=== PATIENT | female | born 1960 | race Hispanic/Latino ===

== ENCOUNTER → 2019-04-23 | Outpatient (CLI) | payer OTHER | END | disposition home or self-care (01) | LOC: SHCH 14:01 | PROVIDERS: ATTEND Internal Medicine Cardiovascular Disease | DX: I10 Essential (primary) hypertension (principal) | CPT/HCPCS: 93306 ==

== ENCOUNTER 2019-06-22 05:44 | Day surgery (SDC) | payer OTHER ==
[2019-06-20 09:12] VITALS: BP 154/93
[2019-06-20 09:15] LABS: BASOPHILS % (AUTO) 0.4 % (0.0-5.0); EOSINOPHILS % (AUTO) 2.7 % (0.0-8.0); HEMATOCRIT 33.7 % (36-48); LYMPHOCYTES % (AUTO) 23.8 % (21.0-51.0); MEAN CORPUSCULAR HEMOGLOBIN 23.2 pg (27.0-33.0); MEAN CORPUSCULAR VOLUME 77.5 fL (79-99); MONOCYTES % (AUTO) 5.9 % (3.0-13.0); PLATELET COUNT (AUTO) 284 K/uL (130-400); RED BLOOD CELL COUNT(AUTO) 4.35 MIL/uL (4.00-5.50); RED CELL DISTRIBUTION WIDTH 16.1 % (11.0-15.5); WHITE BLOOD COUNT (AUTO) 5.5 K/uL (4.8-10.8)
[2019-06-20 09:16] LABS: APPEARANCE,URINE CLOUDY (CLEAR); BILIRUBIN,URINE NEGATIVE (NEGATIVE); COLOR,URINE YELLOW (YELLOW); GLUCOSE, URINE (UA) NEGATIVE (NEGATIVE); KETONES,URINE NEGATIVE (NEGATIVE); LEUKOCYTE ESTERASE ,URINE SMALL (NEGATIVE); NITRATE,URINE NEGATIVE (NEGATIVE); OCCULT BLOOD,URINE NEGATIVE (NEGATIVE); PH,URINE 7.5 (5.0-8.0); PROTEIN,URINE NEGATIVE (NEGATIVE); UROBILINOGEN,URINE 0.2 mg/dL (0.2-1.0)
[2019-06-20 09:20] LABS: CREATININE 0.8 mg/dL (0.5-1.5); POTASSIUM 3.9 mmol/L (3.5-5.1)
[2019-06-20 09:24] LABS: INR 0.95 (0.85-1.15); PARTIAL THROMBOPLASTIN TIME 27.1 SEC (26.3-35.5)
[2019-06-20 09:29] LABS: AMORPHOUS SEDIMENT,UR Many /LPF (None Seen); BACTERIA,URINE Rare /HPF (None Seen); RBC,URINE 0-1 /HPF (0-1); SQUAMOUS EPITHELIAL CELL,UR Rare /HPF (0-2); WBC,URINE 0-1 /HPF (0-1)
--- NOTE | 2019-06-21 20:00 | NUR ---
REPORTED ABNORMAL LABS TO RAFFAELE WARREN FOR DR. TODD, NO NEW ORDERS OK TO PROCEED.
[~2019-06-22] VITALS: Ht 154.9 cm; Wt 73.9 kg
[2019-06-22] VITALS (12 sets, daily range): BP systolic 114–147; BP diastolic 73–94
[~2019-06-22 05:44] MED LIST: ASPI-555 PO; ATOR20TA65 PO; DILT240C46 PO; FLUT16H NASAL; FOLI1TAB85 PO; NITR0.4T50 SL; SODIUM CHLORIDE 0.9% 500ML 500 ML IV SCH; TOPI50TA24 PO; VITAMIN D3 PO
[2019-06-22] MEDS ORDERED: SODIUM CHLORIDE 0.9% 1000ML 1,000 ML IV ONE (06:22)
[2019-06-22] MEDS ORDERED: IOHEXOL-350 50ML VIAL IV ONE (08:49)
[2019-06-22] MEDS ORDERED: LIDOCAINE HCL 2% 20ML ONE (08:49)
[2019-06-22] MEDS ORDERED: HEPARIN SODIUM 1000UNIT/ML 10ML VIAL ONE (08:49)
[2019-06-22] MEDS ORDERED: IOHEXOL 350 MG/ML 100ML INFUS..BTL IV ONE (08:49)
[2019-06-22] MEDS ORDERED: ACETAMINOPHEN 325 MG TAB ONE (14:23)
[2019-06-22] MEDS ORDERED: ACETAMINOPHEN 325 MG TAB PO ONE (15:40)
[2019-06-22] MEDS ORDERED: ONDANSETRON HCL 4 MG/2 ML VIAL ONE (16:40)
== END 2019-06-22 18:50 | disposition home or self-care (01) ==
LOC: DAH 05:44
PROVIDERS: ATTEND Internal Medicine Cardiovascular Disease
DX: R94.39 Abnormal result of other cardiovascular function study (principal); R07.9 Chest pain, unspecified; Z88.1 Allergy status to other antibiotic agents; Z88.2 Allergy status to sulfonamides; Z88.8 Allergy status to other drugs, medicaments and biological substances; Z79.899 Other long term (current) drug therapy; Z79.82 Long term (current) use of aspirin; Z82.49 Family history of ischemic heart disease and other diseases of the circulatory system
CPT/HCPCS: 36415; 71045; 80048; 81001; 85025; 85610; 85730; 93005; 93458; A4606; C1894; J1644; J2405; J3490; J7030; Q9967

== ENCOUNTER → 2021-04-11 | Outpatient (CLI) | payer OTHER ==
[~2021-04-11] MED LIST changes: -ASPI-555 PO; +ASPI-556 PO; -NITR0.4T50 SL; -SODIUM CHLORIDE 0.9% 500ML 500 ML IV SCH
== END | disposition home or self-care (01) ==
LOC: SHCH 07:31
PROVIDERS: ATTEND Internal Medicine Cardiovascular Disease
DX: I87.2 Venous insufficiency (chronic) (peripheral) (principal); R59.0 Localized enlarged lymph nodes
CPT/HCPCS: 93970

== ENCOUNTER → 2024-06-01 | Outpatient (CLI) | payer OTHER, MEDICARE ==
[~2024-06-01] MED LIST changes: +TOPI-97 PO; -TOPI50TA24 PO
[2024-06-01 10:18] LABS: INR <= 0.93 (0.85-1.15); PROTHROMBIN TIME 10.5 SEC (9.6-11.6)
[2024-06-01 10:20] LABS: PARTIAL THROMBOPLASTIN TIME 29.1 SEC (26.3-35.5)
== END | disposition home or self-care (01) ==
LOC: LAB 09:20
PROVIDERS: ATTEND Internal Medicine
DX: E04.2 Nontoxic multinodular goiter (principal)
CPT/HCPCS: 36415; 85610; 85730

== ENCOUNTER → 2024-06-03 | Outpatient (CLI) | payer OTHER, MEDICARE ==
--- NOTE | 2024-06-03 09:15 | NUR ---
U/S GD ISTHMUS THYROID NODULE FNA TOLERATED PROCEDURE. PERFORMED BY DR Audra ALONZO. X4 ISTHMUS THYROID NODULE ASPIRATIONS COLLECTED BY PERFUMER ARDEN Koo PUNCTURE SITE TO MID NECK. END OF PROCEDURE AT 0855. DRESSING APPLIED. NO BLEEDING NOTED. DISCHARGE INSTRUCTIONS GIVEN TO PT. VERBALIZED UNDERSTANDING. DISCHARGE VIA AMBULATORY. DENIES PAIN. A&O.
--- NOTE | 2024-06-03 10:48 | HMCIMG ---
US GUIDANCE NDL [facility] IR REASON: RT THYROID - ISTHMAS NODULE 1.4CM COMPARISON: None TECHNIQUE: Thyroid nodule biopsy was discussed with patient including risks and benefits. The 1.4 cm nodule in the isthmus was identified with preprocedure ultrasound and overlying skin prepped and draped in a sterile fashion. 1% Xylocaine infiltration was performed. 27-gauge needle was then advanced into the mass under direct ultrasound guidance, with an aspiration biopsy obtained. This was repeated for a total of 4 samples. Pathology medical claims representative declaredthe samples to be adequate. Patient expressed no evidence of complication during the procedure. IMPRESSION: 1. Ultrasound-guided fine-needle aspiration biopsy of Isthmus a located the thyroid nodule as described.
== END ==
LOC: RAH 07:33
PROVIDERS: ATTEND Internal Medicine
DX: E04.1 Nontoxic single thyroid nodule (principal); I10 Essential (primary) hypertension; E78.5 Hyperlipidemia, unspecified; E66.9 Obesity, unspecified; Z68.32 Body mass index [BMI] 32.0-32.9, adult; Z88.2 Allergy status to sulfonamides; Z88.8 Allergy status to other drugs, medicaments and biological substances; Z79.899 Other long term (current) drug therapy
CPT/HCPCS: 10005; 76942; 88173; 88305